=== PATIENT | female | born 1975 | race Caucasian/White ===

== ENCOUNTER → 2022-08-22 | Day surgery (SDC) | payer BC ==
[~2022-08-22] MED LIST: Lactated Ringers 1,000 ML IV SCH; Midazolam 1 MG/ML 2 ML SDV IV ONE; Propofol 200 MG/20 ML SDV IV ONE; Sodium Chloride 0.9% 10 ML Syringe FLUSH PRN
== END ==
LOC: FB.SDS 06:20
PROVIDERS: ATTEND Surgery
DX: Z12.11 Encounter for screening for malignant neoplasm of colon (principal); I10 Essential (primary) hypertension; K21.9 Gastro-esophageal reflux disease without esophagitis; J45.909 Unspecified asthma, uncomplicated; Z80.0 Family history of malignant neoplasm of digestive organs; Z79.899 Other long term (current) drug therapy; Z88.8 Allergy status to other drugs, medicaments and biological substances; Z98.890 Other specified postprocedural states
CPT/HCPCS: 00812; 45378; J2250; J2704; J7120

== ENCOUNTER 2023-09-18 06:28 | Day surgery (SDC) | payer BC ==
[~2023-09-18 06:28] MED LIST changes: -Midazolam 1 MG/ML 2 ML SDV IV ONE; -Propofol 200 MG/20 ML SDV IV ONE
[2023-09-18] MEDS ORDERED: Glycopyrrolate 0.2 MG/ML 5 ML MDV IV ONE (06:29)
[2023-09-18] MEDS ORDERED: Midazolam 1 MG/ML 2 ML SDV IV ONE (06:29)
[2023-09-18] MEDS ORDERED: Propofol 200 MG/20 ML SDV IV ONE (06:29)
[2023-09-18] MEDS ORDERED: fentaNYL 100 MCG/2 ML SDV IV ONE (06:29)
[2023-09-18] MEDS ORDERED: Simethicone Drops 40 MG/0.6 ML 30 ML Bottle ONE (07:15)
== END 2023-09-18 09:00 | disposition home or self-care (01) ==
LOC: FB.SDS 06:28
PROVIDERS: ATTEND Surgery
DX: K59.04 Chronic idiopathic constipation (principal); Q43.8 Other specified congenital malformations of intestine; K21.9 Gastro-esophageal reflux disease without esophagitis; I10 Essential (primary) hypertension; E78.5 Hyperlipidemia, unspecified; Z80.0 Family history of malignant neoplasm of digestive organs; Z79.899 Other long term (current) drug therapy; Z88.8 Allergy status to other drugs, medicaments and biological substances; Z88.1 Allergy status to other antibiotic agents
CPT/HCPCS: 45378; A9270; J2250; J2704; J3010; J3490; J7120